=== PATIENT | female | born 1975 | race Hispanic/Latino ===

== ENCOUNTER 2023-04-23 15:16 | Emergency (ER) | payer OTHER ==
[~2023-04-23] VITALS: Ht 160 cm; Wt 82.6 kg
[2023-04-23 17:37] VITALS: BP 147/75
== END 2023-04-23 17:57 | disposition left against medical advice (07) ==
LOC: EDH 15:16
DX: J02.9 Acute pharyngitis, unspecified (principal); R50.9 Fever, unspecified; R05.9 Cough, unspecified; Z53.21 Procedure and treatment not carried out due to patient leaving prior to being seen by health care provider